=== PATIENT | male | born 1995 | race African-American/Black ===

== ENCOUNTER 2019-09-14 13:21 | Emergency (ER) | payer OTHER ==
--- NOTE | 2019-09-14 14:10 | ER Document Report ---
HPI - HPI Notes: The patient was evaluated during the global Covid 19 pandemic and that diagnosis was suspected/considered upon their initial presentation. Their evaluation, treatment and testing was consistent with current guidelines for patients who present with complaints or symptoms that may be related to Covid 19. Patient indicates that he traveled to [place] in the last week to picking tech an oldest child who was with family members there. He states that he found out 2 days after returning that his mother tested positive for coronavirus. Patient denies any physical complaints at this time. No fever. No headache. No sore throat. No nasal congestion. No chest pain. No shortness of breath. No abdominal pain nausea vomiting. No diarrhea. Heart rate 88. Blood pressure 112/55. Pulse oximetry 96% on room air. Temperature 97.5 degrees. Respiratory rate 18. Full physical exam could not be performed due to Covid 19 isolation protocols. Constitutional: Nontoxic appearance, no acute distress Eyes: Nonicteric, extraocular movements intact, sclera clear Cardiovascular: No JVD Respiratory: Nonlabored breathing, no use of accessory muscles, no tachypnea Gastrointestinal: Abdomen not distended Musculoskeletal: Moves all extremities well, normal gait Skin: Normal color Neuro: Awake alert oriented x3, normal speech Psych: Normal mood and affect Patient presents with upper respiratory symptoms worrisome for possible Covid 19. Patient does not have emergency worrying symptoms such as difficulty breathing, shortness of breath, chest pain, pressure, confusion or cyanosis. Patient appears suitable for discharge as they are not of an advanced age, do not have any chronic medical conditions that are uncontrolled such as diabetes, CAD, immune deficiency, chronic lung disease or chronic kidney disease. Patient's vital signs are stable and patient is nontoxic in appearance. Good return precautions have been discussed with the patient and/or family members. Patient verbalized understanding and is agreeable with discharge plan of care at this time. Given the recent contact will send Covid 19 testing, patient was advised to quarantine for 14 days. 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 If your test result is positive, you will receive additional information from your provider in your local health department at that time. Remain at home until you are cleared by the health provider or public health authorities. Keep a log of visitors to your home, notify any visitors to your home with your isolation status. If you plan to move to a new address or leave the [facility], notify the local health department in your County. Call your doctor or seek care if you have an urgent medical need. Before seeking medical care, call ahead to get instructions from the provider before arriving at the medical office clinic or hospital. Notify them that you are being tested for the virus that causes Covid 19 so that arrangements can be made as necessary to prevent transmission to others in the healthcare setting. Next, notify the local health department and your County. If you medical emergency arises and you need to call 911, inform the first responders that you are being tested for the virus that causes Covid 19. Next, notify the local health department and your County Referrals: LOCALMD,NO [Primary Care Provider] - Follow up as needed
[2019-09-14 15:44] LABS: A TYPE INFLUENZA AG NEGATIVE (NEGATIVE); B INFLUENZA AG NEGATIVE (NEGATIVE)
== END 2019-09-14 17:00 | disposition home or self-care (01) ==
LOC: EDRDC 13:21
DX: Z20.828 Contact with and (suspected) exposure to other viral communicable diseases (principal)
CPT/HCPCS: 87070; 87635; 87804; 87880; 99201